=== PATIENT | male | born 1970 | race Caucasian/White ===

== ENCOUNTER 2016-06-06 11:34 | Emergency (ER) | payer OTHER ==
[2016-06-06 11:40] VITALS: BP 142/93; PULSE 76; TEMP 98; BMI 29.1
--- NOTE | 2016-06-06 13:12 | PDOC ---
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 He does not want anything currently for pain. He reports that it really doesn't hurt much but is swollen and he cannot get his foot into his boots. Patient denies any numbness of right foot or ankle area. Occurred: reports: this morning Severity: Yes: mild Lower Extremity Pain Location: right: ankle Method of Injury: Yes: twisted (at work getting off Fire Truck ) Lower Ext. Injury Location - Specific Injury Location Ankle: right swelling (rt. lateral ankle) Extremity Pain Location - Extremity Pain Location Extremity Pain Locations: right: ankle Past History - Past Medical History Allergies/Adverse Reactions: Allergies Allergy/AdvReac Type Severity Reaction Status Date / Time No Known Allergies Allergy Verified 06/06/16 11:41 Home Medications: Ambulatory Orders NK [No Known Home Medication] 06/06/16 Anemia: No Asthma: No Cancer: No Cardiac Disorders: No CVA: No COPD: No CHF: No Dementia: No Diabetes: No GI Disorders: No Disorders: No HTN: Yes Hypercholesterolemia: Yes Liver Disease: No Seizures: No Thyroid Disease: No - Surgical History Abdominal Surgery: No Cardiac Surgery: No Lung Surgery: No Neurologic Surgery: Yes (L KIDNEY REMOVED) Orthopedic Surgery: No - Psycho/Social/Smoking Cessation Hx Anxiety: No Suicidal Ideation: No Smoking Status: No Smoking History: Never smoked Have you smoked in the past 12 months: No Number of Cigarettes Smoked Daily: 0 Information on smoking cessation initiated: No Hx Alcohol Use: Yes (1/week) Drug/Substance Use Hx: No Substance Use Type: None Hx Substance Use Treatment: No Review of Systems - Review of Systems Able to Perform ROS?: Yes Constitutional: No: Symptoms Reported HEENTM: No: Symptoms Reported Respiratory: No: Symptoms reported Cardiac (ROS): No: Symptoms Reported ABD/GI: No: Symptoms Reported Musculoskeletal: Yes: Joint Pain (rt. lateral ankle mild ), Joint Swelling (rt. lateral ankle ) Integumentary: No: Symptoms Reported Neurological: No: Symptoms reported *Physical Exam - Vital Signs Last Vital Signs Temp Pulse Resp BP Pulse Ox 98 F 76 18 142/93 98 06/06/16 11:38 06/06/16 11:38 06/06/16 11:38 06/06/16 11:38 06/06/16 11:38 - Physical Exam General Appearance: Yes: Appropriately Dressed Respiratory/Chest: positive: Lungs Clear, Normal Breath Sounds. negative: Chest Tender, Respiratory Distress Cardiovascular: positive: Regular Rhythm, Regular Rate, S1, S2 Vascular Pulses: Dorsalis-Pedis (R): 4+ Extremity: positive: Normal Capillary Refill, Normal Range of Motion (rt. ankle ), Tender (rt. lateral ankle ), Swelling (rt. lateral ankle ) Integumentary: positive: Swelling (rt. lateral ankle ) Neurologic: positive: Normal Response, Respond to painful stimul (rt. 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 He does not want anything currently for pain. He reports that it really doesn't hurt much but is swollen and he cannot get his foot into his boots. Patient denies any numbness of right foot or ankle area. Rule out ankle fracture right Right ankle sprain Plan: Patient offered pain medication does not want anything at this time. X-ray right ankle and foot no fracture noted Hua wrap 3 inch right foot air cast applied he does not want crutches Follow-up with ortho if swelling and pain continues 06/06/16 13:39 06/06/16 13:40 *DC/Admit/Observation/Transfer Diagnosis at time of Disposition: Sprain of ankle, right Qualifiers: Encounter type: initial encounter Involved ligament of ankle: unspecified ligament Qualified Code(s): S93.401A - Sprain of unspecified ligament of right ankle, initial encounter - Discharge Dispostion Disposition: HOME Condition at time of disposition: Stable - Referrals Referrals: Shmuel Alcantar MD [Primary Care Provider] - - Patient Instructions Additional Instructions: Elevate right leg as much as possible and apply ice to right lateral ankle area every 2 hours while awake today and tomorrow Wear Aircast and Hua wrap to right ankle Follow-up with orthopedist if pain or swelling persist Follow-up with occupational health for clearance to return to work Take acetaminophen as needed 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
== END 2016-06-06 13:45 | disposition home or self-care (01) ==
LOC: JERFT 11:34
PROC: 2W3MX1Z Immobilization of Left Lower Extremity using Splint (ICD-10-PCS; principal; 2016-06-06)
DX: S93.401A Sprain of unspecified ligament of right ankle, initial encounter (principal); X50.1XXA Overexertion from prolonged static or awkward postures, initial encounter; V86.41XA Person injured while boarding or alighting from ambulance or fire engine, initial encounter; Y93.89 Activity, other specified; Y99.0 Civilian activity done for income or pay; Y92.89 Other specified places as the place of occurrence of the external cause
CPT/HCPCS: 73610-TC-RT; 73630-TC-RT; 99281-25